=== PATIENT | male | born 1930 | race Two or more races ===

== ENCOUNTER 2018-04-25 12:45 | Outpatient (CLI) | payer OTHER, BC | END 2018-04-25 13:02 | disposition short-term general hospital (02) | LOC: AMBL 12:45 | PROVIDERS: ATTEND Internal Medicine | DX: R06.02 Shortness of breath (principal); R41.82 Altered mental status, unspecified; R09.89 Other specified symptoms and signs involving the circulatory and respiratory systems; R53.83 Other fatigue; F03.90 Unspecified dementia, unspecified severity, without behavioral disturbance, psychotic disturbance, mood disturbance, and anxiety; R40.2421 Glasgow coma scale score 9-12, in the field [EMT or ambulance] ==